=== PATIENT | male | born 1945 | race Caucasian/White ===

== ENCOUNTER 2018-10-26 15:27 | Inpatient (IN) | payer MEDICARE, OTHER ==
--- NOTE | 2018-10-26 16:10 | XR ---
EXAMINATION TYPE: XR Hip LT and AP Pelvis DATE OF EXAM: 10/26/2018 COMPARISON: NONE HISTORY: Recent fall injury with pain. TECHNIQUE: A single AP view of the pelvis is obtained. Two views of the left hip are obtained. FINDINGS: There is age-indeterminate subcapital fracture of left proximal femur presumed acute with some impaction and superior lateral displacement of distal fracture fragment. No hip joint dislocati on is seen. Imaging of the pelvis shows no additional fracture. Moderate narrowing right hip joint is slightly mo re prominent than left hip joint. Scattered pelvic phleboliths are present. IMPRESSION: There is acute subcapital displaced fracture left proximal femur. (Initial encounter closed type post traumatic fracture)
[2018-10-26] MEDS ORDERED: SODIUM CHLORIDE 0.9% 1,000 ML IV STA (16:22)
[2018-10-26] MEDS ORDERED: MORPHINE SULFATE 4 MG/ML SYRINGE IV STA (16:22)
[2018-10-26 16:53] LABS: Basophils % (A) 0 %; Eosinophils # (A) 0.2 k/uL (0-0.7); Eosinophils % (A) 2 %; HCT 39.5 % (39.0-53.0); HGB 12.4 gm/dL (13.0-17.5); Lymphocytes # (A) 1.5 k/uL (1.0-4.8); Lymphocytes % (A) 20 %; MCH 29.6 pg (25.0-35.0); MCHC 31.4 g/dL (31.0-37.0); MCV 94.4 fL (80.0-100.0); Mean Platelet Volume 6.6; Monocytes # (A) 0.5 k/uL (0-1.0); Monocytes % (A) 6 %; Neutrophils # (A) 5.5 k/uL (1.3-7.7); Neutrophils % (A) 70 %; Platelet Count 520 k/uL (150-450); RBC 4.19 m/uL (4.30-5.90); RDW 14.5 % (11.5-15.5); WBC 7.9 k/uL (3.8-10.6)
[2018-10-26 17:00] LABS: INR 0.9 (<1.2); Partial Thromboplastin Time 25.7 sec (22.0-30.0); Prothrombin Time 9.4 sec (9.0-12.0)
--- NOTE | 2018-10-26 17:01 | XR ---
EXAMINATION TYPE: XR chest 2V DATE OF EXAM: 10/26/2018 COMPARISON: NONE HISTORY: Hip pain. Weakness TECHNIQUE: Frontal and lateral views of the chest are obtained. FINDINGS: Heart is normal. Lungs are clear. There is no heart failure. Costophrenic angles are clear . The bony thorax is intact. There is spurring in the thoracic spine. IMPRESSION: No cardiopulmonary disease. Normal heart.
[2018-10-26 17:06] LABS: ALT 50 U/L (21-72); AST 29 U/L (17-59); Albumin 4.1 g/dL (3.5-5.0); Alkaline Phosphatase 124 U/L (38-126); Anion Gap 9 mmol/L; Blood Urea Nitrogen 15 mg/dL (9-20); Calcium 9.3 mg/dL (8.4-10.2); Carbon Dioxide 27 mmol/L (22-30); Chloride 105 mmol/L (98-107); Glucose 102 mg/dL (74-99); Magnesium 2.1 mg/dL (1.6-2.3); Phosphorus 3.3 mg/dL (2.5-4.5); Potassium 4.2 mmol/L (3.5-5.1); Sodium 141 mmol/L (137-145); Total Bilirubin 0.5 mg/dL (0.2-1.3)
--- NOTE | 2018-10-26 17:09 | ED ---
Lower Extremity Injury HPI - General Chief Complaint: Extremity Injury, Lower Stated Complaint: left hip pain Time Seen by Provider: 10/26/18 15:35 Source: RN/MD, EMS, RN notes reviewed, old records reviewed Mode of arrival: EMS Limitations: altered mental status - History of Present Illness Initial Comments: This is a 73-year-old male the ER for evaluation. Patient has multiple recent falls. Patient has had prior evaluation of falls, he is unsure findings with him. Patient poor historian secondary to age. Patient does have what they believe is deformity of left lower extremity. Presenting for that today with pain. This is been ongoing for a few days, no one is sure when this is actual fall did happen. MD Complaint: hip injury (() -: unknown Injury: Hip: Left Type of Injury: blunt Place: home Severity: severe Severity scale (1-10): 8 Improves With: nothing Worsens With: other (Patient cannot weight-bear, does not walk) Context: fall, direct blow Associated Symptoms: unable to bear weight - Related Data Home Medications Medication Instructions Recorded Confirmed Acetaminophen Tab [Tylenol Tab] 325 - 650 mg PO Q6H PRN 10/26/18 10/26/18 Aspirin EC [Ecotrin Low Dose] 81 mg PO DAILY 10/26/18 10/26/18 Atorvastatin [Lipitor] 80 mg PO HS 10/26/18 10/26/18 Cyclobenzaprine [Flexeril] 5 mg PO BID PRN 10/26/18 10/26/18 Shaklee Jazmín Alina 1 tab PO AC-BRKFST 10/26/18 10/26/18 Ticagrelor [Brilinta] 90 mg PO BID 10/26/18 10/26/18 amLODIPine [Norvasc] 5 mg PO DAILY 10/26/18 10/26/18 buPROPion [Wellbutrin] 100 mg PO DAILY 10/26/18 10/26/18 Allergies Allergy/AdvReac Type Severity Reaction Status Date / Time No Known Allergies Allergy Verified 10/26/18 17:37 Review of Systems ROS Statement: Those systems with pertinent positive or pertinent negative responses have been documented in the HPI. ROS Other: All systems not noted in ROS Statement are negative. 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 Absent: scleral icterus, conjunctival injection, periorbital swelling ENT exam: Present: normal exam, mucous membranes moist Neck exam: Present: normal inspection. Absent: tenderness, meningismus, lymphadenopathy Respiratory exam: Present: normal lung sounds bilaterally. Absent: respiratory distress, wheezes, rales, rhonchi, stridor Cardiovascular Exam: Present: regular rate, normal rhythm, normal heart sounds. Absent: systolic murmur, diastolic murmur, rubs, gallop, clicks GI/Abdominal exam: Present: soft, normal bowel sounds. Absent: distended, tenderness, guarding, rebound, rigid Extremities exam: Present: normal inspection, full ROM, normal capillary refill, other (Significant left lower extremity shortening, tenderness and range of motion). Absent: tenderness, pedal edema, joint swelling, calf tenderness Back exam: Present: normal inspection Neurological exam: Present: alert, oriented X3, CN II-XII intact Psychiatric exam: Present: normal affect, normal mood Skin exam: Present: warm, dry, intact, normal color. Absent: rash Course Vital Signs 10/26/18 10/26/18 15:36 17:19 Temperature 97.8 F Pulse Rate 70 89 Respiratory 16 16 Rate Blood Pressure 123/61 136/63 O2 Sat by Pulse 98 100 Oximetry - Reevaluation(s) Reevaluation #1: 10/26/18 18:04 Clinical record reviewed Reevaluation #2: 10/26/18 18:04 Patient is current pain control Medical Decision Making - Medical Decision Making 73 male the ER for evaluation. Patient has fall with history of falls. Patient is multiple recent falls unsure when the issue happened patient does appear to have significant left hip fracture with displacement. - Lab Data Result diagrams: 10/26/18 16:38 10/26/18 16:38 Lab Results 10/26/18 10/26/18 10/26/18 Range/Units 16:38 16:38 16:38 WBC 7.9 (3.8-10.6) k/uL RBC 4.19 L (4.30-5.90) m/uL Hgb 12.4 L (13.0-17.5) gm/dL Hct 39.5 (39.0-53.0) % MCV 94.4 (80.0-100.0) fL MCH 29.6 (25.0-35.0) pg MCHC 31.4 (31.0-37.0) g/dL RDW 14.5 (11.5-15.5) % Plt Count 520 H (150-450) k/uL Neutrophils % 70 % Lymphocytes % 20 % Monocytes % 6 % Eosinophils % 2 % Basophils % 0 % Neutrophils # 5.5 (1.3-7.7) k/uL Lymphocytes # 1.5 (1.0-4.8) k/uL Monocytes # 0.5 (0-1.0) k/uL Eosinophils # 0.2 (0-0.7) k/uL Basophils # 0.0 (0-0.2) k/uL PT 9.4 (9.0-12.0) sec INR 0.9 (<1.2) APTT 25.7 (22.0-30.0) sec Sodium 141 (137-145) mmol/L Potassium 4.2 (3.5-5.1) mmol/L Chloride 105 (98-107) mmol/L Carbon Dioxide 27 (22-30) mmol/L Anion Gap 9 mmol/L BUN 15 (9-20) mg/dL Creatinine 0.61 L (0.66-1.25) mg/dL Est GFR (CKD-EPI)AfAm >90 (>60 ml/min/1.73 sqM) Est GFR (CKD-EPI)NonAf >90 (>60 ml/min/1.73 sqM) Glucose 102 H (74-99) mg/dL Calcium 9.3 (8.4-10.2) mg/dL Phosphorus 3.3 (2.5-4.5) mg/dL Magnesium 2.1 (1.6-2.3) mg/dL Total Bilirubin 0.5 (0.2-1.3) mg/dL AST 29 (17-59) U/L ALT 50 (21-72) U/L Alkaline Phosphatase 124 (38-126) U/L Troponin I (0.000-0.034) ng/mL Total Protein 7.0 (6.3-8.2) g/dL Albumin 4.1 (3.5-5.0) g/dL 10/26/18 Range/Units 16:38 WBC (3.8-10.6) k/uL RBC (4.30-5.90) m/uL Hgb (13.0-17.5) gm/dL Hct (39.0-53.0) % MCV (80.0-100.0) fL MCH (25.0-35.0) pg MCHC (31.0-37.0) g/dL RDW (11.5-15.5) % Plt Count (150-450) k/uL Neutrophils % % Lymphocytes % % Monocytes % % Eosinophils % % Basophils % % Neutrophils # (1.3-7.7) k/uL Lymphocytes # (1.0-4.8) k/uL Monocytes # (0-1.0) k/uL Eosinophils # (0-0.7) k/uL Basophils # (0-0.2) k/uL PT (9.0-12.0) sec INR (<1.2) APTT (22.0-30.0) sec Sodium (137-145) mmol/L Potassium (3.5-5.1) mmol/L Chloride (98-107) mmol/L Carbon Dioxide (22-30) mmol/L Anion Gap mmol/L BUN (9-20) mg/dL Creatinine (0.66-1.25) mg/dL Est GFR (CKD-EPI)AfAm (>60 ml/min/1.73 sqM) Est GFR (CKD-EPI)NonAf (>60 ml/min/1.73 sqM) Glucose (74-99) mg/dL Calcium (8.4-10.2) mg/dL Phosphorus (2.5-4.5) mg/dL Magnesium (1.6-2.3) mg/dL Total Bilirubin (0.2-1.3) mg/dL AST (17-59) U/L ALT (21-72) U/L Alkaline Phosphatase (38-126) U/L Troponin I <0.012 (0.000-0.034) ng/mL Total Protein (6.3-8.2) g/dL Albumin (3.5-5.0) g/dL - EKG Data -: EKG Interpreted by Me (EKG shows sinus rhythm at 79, AL 134, QRS 82, QTc 449) - Radiology Data Radiology results: report reviewed (Chest x-rays negative for acute disease left hip is positive for left hip fracture), image reviewed Disposition Clinical Impression: Fracture of hip, Closed left hip fracture, Fall, Weakness Disposition: ADMITTED IP TO THIS HOSP Condition: Fair Is patient prescribed a controlled substance at d/c from ED?: No Referrals: Felix Bucio MD [Primary Care Provider] - 1-2 days
[2018-10-26] MEDS ORDERED: SODIUM CHLORIDE 0.9% 1,000 ML IV ONE (18:01)
[2018-10-26] MEDS ORDERED: MORPHINE SULFATE 4 MG/ML SYRINGE IVP STA ×2 (18:36→20:06)
[2018-10-26 19:06] LABS: Appearance,Urine Cloudy (Clear); Bilirubin,Urine Negative (Negative); Blood,Urine Small (Negative); Color,Urine Light Yellow; Glucose,Urine (UA) Negative (Negative); Ketones,Urine Negative (Negative); Leukocyte Esterase,Urine Small (Negative); Nitrite,Urine Negative (Negative); Protein,Urine Negative (Negative); RBC,Urine 25 /hpf (0-5); Specific Gravity,Urine 1.013 (1.001-1.035); Urobilinogen,Urine <2.0 mg/dL (<2.0); WBC,Urine 17 /hpf (0-5)
[2018-10-26] MEDS ORDERED: LORazepam 1 MG TAB PO PRN (22:47)
[2018-10-27] MEDS: MORPHINE SULFATE 4 MG/ML SYRINGE IVP PRN (01:56)
[2018-10-27] MEDS: CYCLOBENZAPRINE 5 MG TAB PO PRN (04:50)
[2018-10-27] MEDS: ALPRAZolam 0.25 MG TAB PO PRN (04:50)
[2018-10-27] MEDS: PANTOPRAZOLE 40 MG TABLET PO SCH (08:01)
[2018-10-27] MEDS: amLODIPine 5 MG TAB PO SCH (08:01)
--- NOTE | 2018-10-27 08:01 | HP ---
HISTORY AND PHYSICAL DATE OF SERVICE: 10/26/2018 CHIEF COMPLAINTS: Fall and left hip pain. HISTORY OF PRESENT ILLNESS: This 73-year-old gentleman with a past medical history of multiple medical issues including CVA, TIA, left-sided deficits, some previous stroke, being followed by Dr. Bucio, [facility], in the outpatient setting was complaining of recurrent falls. The patient apparently lives with a friend and the patient is complaining of left hip pain and the patient is unable to lie down because of some severe discomfort on lying down according to him. Patient came to [facility] and has had a hip pelvis x-ray showed acute subcapital displaced fracture of the left proximal femur and the patient admitted for further evaluation and treatment. There is no history of any fever, rigors or chills. No history of headache, loss of consciousness or seizures. A detailed history CT cannot be taken. The patient is a poor historian. Most of the history taken from my discussion with staff and review of the chart. PAST MEDICAL HISTORY: History of CVA, TIA, left-sided deficits, stroke, history of nicotine dependence. MEDICATIONS: Prior to admission include: 1. Wellbutrin 100 mg p.o. daily. 2. Norvasc 5 mg daily. 3. Brilinta 90 mg p.o. b.i.d. 4. Shaklee. 5. Flexeril 5 mg b.i.d. p.r.n. 6. Lipitor 80 mg q.h.s. 7. Ecotrin 81 mg. 8. Tylenol 325 mg q.6h p.r.n. ALLERGIES: None. Family history, social history and review of systems could not be taken at length because of the patient's change in mental status. PHYSICAL EXAM: GENERAL: Patient is alert, oriented x2. VITAL SIGNS: Pulse 92, blood pressure 150/70, respiration 18, temperature 97.8, pulse ox 98% on room air. HEENT: Conjunctivae normal. NECK: No jugular venous distention. CARDIOVASCULAR: S1, S2 muffled. RESPIRATION: Breath sounds diminished in the bases. A few scattered rhonchi. No crackles. ABDOMEN: Soft, nontender. No mass palpable. LEGS: Significant pain on movement of both legs present. Otherwise as mentioned earlier. Patient is not cooperate with full exam. The patient is half sitting in the bed at this time. The patient has received morphine. NERVOUS SYSTEM: Could not be examined completely because of that reason. JOINTS: As mentioned earlier. SKIN: No ulcer, rash, or bleeding. LYMPHATICS: No lymph nodes palpable in the neck, axillae or groin. SKIN: No ulcer, rash or bleeding. LABS: WBC 7.1, hemoglobin 12.4, otherwise UA noted, possibly UTI and chest x-ray no acute cardiopulmonary disease and the EKG showed no acute changes. ASSESSMENT: 1. Fall and acute left hip fracture. 2. History of multiple falls. 3. Rule out degenerative joint disease of the back. 4. History of left-sided stroke from cerebrovascular accident/transient ischemic attack. 5. Rule out coronary artery disease. 6. History of nicotine dependence. 7. FULL CODE. RECOMMENDATIONS AND DISCUSSION: This 73-year-old gentleman who presented with multiple medical issues, at this time, I recommend to continue current medications, continue symptomatic treatment. I will resume the home medications and DVT prophylaxis. Incentive spirometry. Otherwise, I would also recommend Cardiology consultation. Otherwise, prognosis guarded because of multiple complex medical issues. We will also obtain full medical records from the primary physician's office and further recommendations to follow. The patient is on Brilinta but no documentation of any significant coronary artery disease in the chart. The patient appears to be medically stable and I would clear the patient medically. Follow up with Cardiology and further recommendations to follow. See orders for details. MMODL / IJN: [id number] /
[2018-10-27] MEDS ORDERED: ENOXAPARIN 40 MG/0.4 ML SYRINGE SQ SCH (09:00)
--- NOTE | 2018-10-27 10:50 | P.CNOR ---
History of Present Illness - [facility] Consult date: 10/27/18 Requesting physician: Fausto Petty Consult reason: fracture History of present illness: Patient is a 73-year-old male seen at bedside this morning in consultation for left hip fracture. He was admitted to the emergency department last evening for left hip pain. His history is not clear however he states that he had a fall 3 weeks ago which resulted in his left hip pain. He then states he had another fall about 1 week ago. He states he has a history of a stroke where it affected his left side. He states he suffered a stroke approximately 3 months ago and was treated at [facility] and has been in rehab previously. He currently lives alone but has people help him. He has pain at the left hip as expected. Other medical problems are not known at this point. He denies any other new complaints other than the left hip pain with movement. He states he's had weakness and loss of feeling throughout his left lower extremity for the past 3 months. Review of Systems All systems: negative Constitutional: Denies chills, Denies fever Eyes: denies blurred vision, denies pain Ears, nose, mouth and throat: Denies headache, Denies sore throat Cardiovascular: Denies chest pain, Denies shortness of breath Respiratory: Denies cough Gastrointestinal: Denies abdominal pain, Denies diarrhea, Denies nausea, Denies vomiting Musculoskeletal: Denies myalgias Integumentary: Denies pruritus, Denies rash Neurological: Denies numbness, Denies weakness Psychiatric: Denies anxiety, Denies depression Endocrine: Denies fatigue, Denies weight change Past Medical History Past Medical History: CVA/TIA Additional Past Medical History / Comment(s): left side deficits from stroke History of Any Multi-Drug Resistant Organisms: None Reported Past Surgical History: No Surgical Hx Reported Past Anesthesia/Blood Transfusion Reactions: No Reported Reaction Past Psychological History: No Psychological Hx Reported Smoking Status: Current every day smoker Past Alcohol Use History: Occasional Past Drug Use History: None Reported - Past Family History Mother History Unknown: Yes Medications and Allergies Home Medications Medication Instructions Recorded Confirmed Type Acetaminophen Tab [Tylenol Tab] 325 - 650 mg PO Q6H PRN 10/26/18 10/26/18 History Aspirin EC [Ecotrin Low Dose] 81 mg PO DAILY 10/26/18 10/26/18 History Atorvastatin [Lipitor] 80 mg PO HS 10/26/18 10/26/18 History Cyclobenzaprine [Flexeril] 5 mg PO BID PRN 10/26/18 10/26/18 History Onel [place] Alina 1 tab PO AC-BRKFST 10/26/18 10/26/18 History Ticagrelor [Brilinta] 90 mg PO BID 10/26/18 10/26/18 History amLODIPine [Norvasc] 5 mg PO DAILY 10/26/18 10/26/18 History buPROPion [Wellbutrin] 100 mg PO DAILY 10/26/18 10/26/18 History Allergies Allergy/AdvReac Type Severity Reaction Status Date / Time No Known Allergies Allergy Verified 10/26/18 17:37 Physical Examination inspection of the left lower extremity shows a shortened externally rotated leg. There are no wounds or erythema. He does not have active range of motion about the left lower extremity. He is able to sense pressure throughout the left lower extremity. The leg is adequately perfused. Calf is soft and nonte nder. There is 2+ dorsalis pedis pulse and less than 2 second capillary refill. Range of motion of the hip is not tested due to the fracture. Results x-rays of the pelvis left hip show a shortened displaced subcapital femoral neck fracture on the left. - Labs Labs: Abnormal Lab Results - Last 24 Hours (Table) 10/26/18 10/26/18 10/26/18 Range/Units 16:38 16:38 18:56 RBC 4.19 L (4.30-5.90) m/uL Hgb 12.4 L (13.0-17.5) gm/dL Plt Count 520 H (150-450) k/uL Creatinine 0.61 L (0.66-1.25) mg/dL Glucose 102 H (74-99) mg/dL Urine Blood Small H (Negative) Ur Leukocyte Esterase Small H (Negative) Urine RBC 25 H (0-5) /hpf Urine WBC 17 H (0-5) /hpf Microbiology - Last 24 Hours (Table) 10/26/18 18:56 Urine Culture - Preliminary Urine,Voided H & H 10/26/18 Range/Units 16:38 Hgb 12.4 L (13.0-17.5) gm/dL Hct 39.5 (39.0-53.0) % Coagulation 10/26/18 Range/Units 16:38 INR 0.9 (<1.2) Result Diagrams: 10/26/18 16:38 10/26/18 16:38 - Diagnostic results Hip x-ray: report reviewed, image reviewed Assessment and Plan (1) Closed left hip fracture Narrative/Plan: Plan will be to proceed with surgical intervention including a left hip hemiarthroplasty if cleared by internal medicine and primary team. He will be p laced nothing by mouth after midnight. Procedure and consent have been ordered. He'll need placement postoperatively. I Explained the procedure, possible risks and complications. He desires to proceed if possible. Continue pain management, DVT prophylaxis and medical management in the meantime. Current Visit: Yes Status: Acute Priority: Medium Code(s): S72.002A - FRACTURE OF UNSP PART OF NECK OF LEFT FEMUR, INIT SNOMED Code(s): 877145492 (2) Fracture of hip Current Visit: Yes Status: Acute Priority: Medium Code(s): S72.009A - FRACTURE OF UNSP PART OF NECK OF UNSP FEMUR, INIT SNOMED Code(s): 777799148 (3) Weakness Current Visit: Yes Status: Acute Priority: Medium Code(s): R53.1 - WEAKNESS SNOMED Code(s): 52851803
--- NOTE | 2018-10-27 11:49 | P.CRDCN ---
History of Present Illness Consult date: 10/27/18 Chief complaint: Preop cardiac assessment History of present illness: This is a 73-year-old gentleman who is somewhat poor historian with a past medical history significant for history of stroke with residual left sided weakness was admitted to the hospital after he fell at home and fractured his left hip. The patient has been weak lately and he has been falling as well. Apparently he was at home when he fell and started experiencing left hip pain and he presented to the emergency room here where he underwent a computed tomography scan which showed fracture of the left proximal femur and the patient was admitted for possible surgery tomorrow. The patient denies any chest pain, shortness of breath, dizziness, heart racing, or syncope. Somewhat he is a poor historian. For some reason he is receiving Brilinta at 90 mg by mouth twice a day but he stated that he never had any coronary stenting nor coronary revascularization in the past. He stated that was prescribed to him by his urologist. The only indication for this medication is coronary artery disease and coronary stenting. Reviewing the previous medical records in the hospital did not indicate that the patient underwent a heart catheterization or coronary stenting in the past unless the patient did undergo that out of the town. The EKG showed sinus rhythm. The chest x-ray did not show any acute abnormalities the blood work was reviewed and came in to be unremarkable. Past Medical History Past Medical History: CVA/TIA Additional Past Medical History / Comment(s): left side deficits from stroke History of Any Multi-Drug Resistant Organisms: None Reported Past Surgical History: No Surgical Hx Reported Past Anesthesia/Blood Transfusion Reactions: No Reported Reaction Past Psychological History: No Psychological Hx Reported Smoking Status: Current every day smoker Past Alcohol Use History: Occasional Past Drug Use History: None Reported - Past Family History Mother History Unknown: Yes Medications and Allergies Home Medications Medication Instructions Recorded Confirmed Type Acetaminophen Tab [Tylenol Tab] 325 - 650 mg PO Q6H PRN 10/26/18 10/26/18 History Aspirin EC [Ecotrin Low Dose] 81 mg PO DAILY 10/26/18 10/26/18 History Atorvastatin [Lipitor] 80 mg PO HS 10/26/18 10/26/18 History Cyclobenzaprine [Flexeril] 5 mg PO BID PRN 10/26/18 10/26/18 History Shaklee Jazmín Alina 1 tab PO AC-BRKFST 10/26/18 10/26/18 History Ticagrelor [Brilinta] 90 mg PO BID 10/26/18 10/26/18 History amLODIPine [Norvasc] 5 mg PO DAILY 10/26/18 10/26/18 History buPROPion [Wellbutrin] 100 mg PO DAILY 10/26/18 10/26/18 History Allergies Allergy/AdvReac Type Severity Reaction Status Date / Time No Known Allergies Allergy Verified 10/26/18 17:37 Physical Exam Vitals: Vital Signs Temp Pulse Pulse Resp BP BP Pulse Ox 10/27/18 07:00 98.1 F 82 12 136/72 98 10/27/18 02:10 97.4 F L 89 14 157/81 98 10/26/18 22:19 97.9 F 89 12 132/78 96 10/26/18 21:09 70 16 126/72 100 10/26/18 18:55 92 18 155/73 98 10/26/18 17:19 89 16 136/63 100 10/26/18 15:36 97.8 F 70 16 123/61 98 Intake and Output 10/26/18 10/27/18 10/27/18 22:59 06:59 14:59 Intake Total 1799 Output Total 800 Balance 1799 -800 Intake: Intake, IV Titration 1799 Amount Sodium Chloride 0.9% 1, 800 000 ml @ 100 mls/hr IV . Q10H ONE Rx#:[id number] Sodium Chloride 0.9% 1, 999 000 ml @ 999 mls/hr IV . Q1H1M STA Rx#:[id number] Output: Urine 800 Other: # Voids 0 1 4 Weight 70.307 kg - Constitutional General appearance: no acute distress - Respiratory Respiratory: bilateral: CTA - Cardiovascular Rhythm: regular Heart sounds: normal: S1, S2 Results 10/26/18 16:38 10/26/18 16:38 Cardiac Enzymes 10/26/18 10/26/18 Range/Units 16:38 16:38 AST 29 (17-59) U/L Troponin I <0.012 (0.000-0.034) ng/mL Coagulation 10/26/18 Range/Units 16:38 PT 9.4 (9.0-12.0) sec APTT 25.7 (22.0-30.0) sec CBC 10/26/18 Range/Units 16:38 WBC 7.9 (3.8-10.6) k/uL RBC 4.19 L (4.30-5.90) m/uL Hgb 12.4 L (13.0-17.5) gm/dL Hct 39.5 (39.0-53.0) % Plt Count 520 H (150-450) k/uL Comprehensive Metabolic Panel 10/26/18 Range/Units 16:38 Sodium 141 (137-145) mmol/L Potassium 4.2 (3.5-5.1) mmol/L Chloride 105 (98-107) mmol/L Carbon Dioxide 27 (22-30) mmol/L BUN 15 (9-20) mg/dL Creatinine 0.61 L (0.66-1.25) mg/dL Glucose 102 H (74-99) mg/dL Calcium 9.3 (8.4-10.2) mg/dL AST 29 (17-59) U/L ALT 50 (21-72) U/L Alkaline Phosphatase 124 (38-126) U/L Total Protein 7.0 (6.3-8.2) g/dL Albumin 4.1 (3.5-5.0) g/dL Current Medications Generic Name Dose Route Start Last Admin Trade Name Freq PRN Reason Stop Dose Admin Hydrocodone Bitart/Acetaminophen 1 each 10/27/18 10:43 [place] 5-325 PO Q4HR PRN Pain Alprazolam 0.25 mg 10/26/18 22:47 10/27/18 04:50 Xanax PO 0.25 mg TID PRN Administration Anxiety Amlodipine Besylate 5 mg 10/27/18 09:00 10/27/18 08:01 Norvasc PO 5 mg DAILY SATURNINO Administration Atorvastatin Calcium 80 mg 10/27/18 21:00 Lipitor PO HS SATURNINO Bupropion HCl 100 mg 10/27/18 09:00 Wellbutrin PO DAILY SATURNINO Cefazolin Sodium 2 gm 10/27/18 11:00 Kefzol IVP Q8HR SATURNINO Cyclobenzaprine HCl 5 mg 10/26/18 22:43 10/27/18 04:50 Flexeril PO 5 mg BID PRN Administration Muscle Spasm Enoxaparin Sodium 40 mg 10/27/18 09:00 Lovenox SQ DAILY SATURNINO Lorazepam 0.5 mg 10/26/18 22:47 Ativan PO Q8HR PRN Anxiety Morphine Sulfate 4 mg 10/26/18 18:36 10/27/18 01:56 Morphine Sulfate (Inj) IVP 4 mg Q4HR PRN Administration Pain Pantoprazole Sodium 40 mg 10/27/18 07:30 10/27/18 08:01 Protonix PO 40 mg AC-BRKFST SATURNINO Administration Intake and Output 10/26/18 10/27/18 10/27/18 22:59 06:59 14:59 Intake Total 1799 Output Total 800 Balance 1799 -800 Intake: Intake, IV Titration 1799 Amount Sodium Chloride 0.9% 1, 800 000 ml @ 100 mls/hr IV . Q10H ONE Rx#:[id number] Sodium Chloride 0.9% 1, 999 000 ml @ 999 mls/hr IV . Q1H1M STA Rx#:[id number] Output: Urine 800 Other: # Voids 0 1 4 Weight 70.307 kg 10/26/18 16:38 10/26/18 16:38 Assessment and Plan Assessment: Assessment #1 status post fall #2 left hip fracture #3 history of stroke Plan #1 clinically the patient can proceed with his surgery #2 I am going to obtain an echocardiogram with Doppler #3 follow-up with the patient Thank you for allowing us participate in his care
[2018-10-27] MEDS: buPROPion 100 MG TAB PO SCH (12:32)
[2018-10-27] MEDS: HYDROcodone/APAP 5-325MG 1 EACH TAB PO PRN ×2 (12:40→22:31)
[2018-10-27] MEDS: ceFAZolin IN SWFI 2 GM/20 ML SYRINGE IVP SCH ×3 (12:41→23:58)
--- NOTE | 2018-10-27 18:01 | CT ---
EXAMINATION TYPE: CT brain wo con DATE OF EXAM: 10/27/2018 COMPARISON: None HISTORY: 73-year-old male old stroke, f/u CVA TECHNIQUE: Examination was done in axial plane without intravenous contrast. Coronal and sagittal r econstructions performed. CT DLP: 1202.4 mGycm Automated exposure control for dose reduction was used. FINDINGS: There is no evidence of acute intracranial hemorrhage, acute ischemic changes, mass, mass-effect, or extra-axial fluid collection. There is no effacement of cerebral sulci or basal subarachnoid cister ns. There is no hydrocephalus. There is no midline shift. Silveira-white matter distinction is preserv ed. Extensive encephalomalacia in the right cerebral hemisphere corresponding to the MCA territory. Secon kai mild ex vacuo enlargement of the right lateral ventricle. Old bilateral basal ganglionic lacunar infarcts. Paranasal sinuses and mastoid air cells are well pneumatized. Orbits and globes appear intact. Rightw yenifer nasal septal deviation. IMPRESSION: Large area of encephalomalacia corresponding to the right MCA territory compatible with old infarct. No acute intracranial abnormality seen.
--- NOTE | 2018-10-27 19:40 | PN ---
PROGRESS NOTE DATE OF SERVICE: 10/27/2018 DATE OF SERVICE: This 73-year-old gentleman who was admitted with acute left hip fracture is being closely monitored by Cardiology as well as orthopedic surgery. Patient had a previous history of stroke. Apparently patient is on Brilinta also of unknown indications. The patient also had UTI present on admission. The patient also complains of back pain also. PAST MEDICAL HISTORY: Reviewed. REVIEW OF SYSTEMS: CARDIOVASCULAR: No angina or palpitations. RESPIRATORY: As mentioned earlier. GI no nausea or vomiting. no dysuria. CURRENT MEDICATIONS: Reviewed and include: 1. [place] 5 mg p.o. q4h p.r.n. 2. Xanax 0.2 t.i.d. 3. Norvasc. 4. Lipitor. 5. Wellbutrin. 6. Kefzol. 7. Flexeril. 8. Lovenox. 9. Ativan. 10.Morphine. 11.Protonix. PHYSICAL EXAM: Patient is alert, oriented x2. Sensorium has improved significantly compared to last night. Pulse 94, blood pressure 116/60. Respirations 12. Temperature is 98 degrees, pulse ox 97% on room air. HEENT: Conjunctivae normal. Oral mucosa moist. Neck is no jugular venous distention. No carotid bruit. No lymph nodes palpable. CARDIOVASCULAR: S1, S2 muffled. RESPIRATORY: Breath sounds diminished in the bases. Bilateral scattered rhonchi and crackles. ABDOMEN: Soft, nontender. Legs status post fracture. NERVOUS SYSTEM: Diffuse weakness on the left side. LABS: WBC 7.2, hemoglobin 12.4. ASSESSMENT: 1. Acute left hip fracture. 2. History of multiple falls and gait dysfunction. 3. 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 4. Possible urinary tract infection present on admission. 5. 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 6. On Brilinta for unknown undetermined reasons. 7. History of nicotine dependence. 8. FULL CODE. RECOMMENDATIONS AND DISCUSSION: This 73-year-old gentleman who presented with multiple complex medical issues, we will monitor the patient closely, continue the current medications, management and symptomatic treatment. I recommend continue with DVT prophylaxis. Obtain cultures. I would also recommend x-rays of the back and also CT scan of the brain also. Otherwise, we will follow the patient closely and discussed with Dr. Skaf. There is no documented or obvious evidence of coronary artery disease. At this time, I recommend hold Brilinta and the patient will be cleared for surgery once the bleeding risks after stopping the Brilinta. Please note, the patient is currently medically stable. Further recommendations to follow. MMODL / IJN: [id number] / MTDD
--- NOTE | 2018-10-27 20:11 | XR ---
EXAMINATION TYPE: XR lumbar spine 2 or 3V DATE OF EXAM: 10/27/2018 COMPARISON: NONE HISTORY: 73-year-old male with back pain TECHNIQUE: 3 views FINDINGS: Osteopenia. Dextroconvex curvature of the lumbar spine. 5 lumbar type vertebral bodies. Very limited crosstable lateral view due to external artifact and overlying bowel content. Hypertrophic facet arth ropathy throughout. Mild degenerative disc disease throughout. Grade 1 anterolisthesis at L2-L3. Bulk y anterior endplate spondylosis lumbar junction. Subtle inferior endplate cortical step off involving L1 may be projectional. Overall vertebral body heights are maintained. IMPRESSION: 1. The lateral view is limited due to crosstable technique. Facet arthropathy throughout with trace g rade 1 anterolisthesis at L2-L3. 2. Questionable cortical step-off involving the L1 inferior endplate. A subtle endplate fracture is d ifficult to exclude if there is localizing pain at this level. Overall vertebral body heights are arielle ntained at this time.
[2018-10-27] MEDS: ATORVASTATIN 80 MG TAB PO SCH (21:03)
[2018-10-28] MEDS: ALPRAZolam 0.25 MG TAB PO PRN (01:59)
[2018-10-28] MEDS: CYCLOBENZAPRINE 5 MG TAB PO PRN (01:59)
[2018-10-28] MEDS: MORPHINE SULFATE 4 MG/ML SYRINGE IVP PRN (04:57)
[2018-10-28] MEDS: PANTOPRAZOLE 40 MG TABLET PO SCH (08:00)
--- NOTE | 2018-10-28 08:10 | ECHOF ---
Referral Reason:pre op MEASUREMENTS -------- HEIGHT: 177.8 cm WEIGHT: 70.3 kg BP: IVSd: 1.2 cm (0.6 - 1.1) LVIDd: 3.0 cm (3.9 - 5.3) LVPWd: 1.3 cm (0.6 - 1.1) IVSs: 1.6 cm LVIDs: 1.2 cm LVPWs: 1.1 cm Ao Diam: 3.1 cm (2.0 - 3.7) AV Cusp: 2.1 cm (1.5 - 2.6) LA Diam: 2.8 cm (2.7 - 3.8) MV EXCURSION: 12.885 mm (> 18.000) MV EF SLOPE: 23 mm/s (70 - 150) EPSS: 0.4 cm MV E Clarence: 0.49 m/s MV DecT: 198 ms MV A Clarence: 0.87 m/s MV E/A Ratio: 0.56 FINDINGS -------- Resting tachycardia (HR>100bpm). This was a technically difficult study with suboptimal views. The left ventricular size is normal. There is mild concentric left ventricular hypertrophy. Overa ll left ventricular systolic function is normal with, an EF between 60 - 65 %. The right ventricle is normal in size. The left atrial size is normal. The right atrial size is normal. Lumason used The aortic valve is trileaflet and appears structurally normal. Mild mitral regurgitation is present. Mild tricuspid regurgitation present. The right ventricular systolic pressure, as measured by Doppl er, is {RVSP}. Pulmonic valve appears structurally normal. The aortic root is dilated measuring 3.1cm. IVC Not well visulized. There is no pericardial effusion. CONCLUSIONS -------- 1. Resting tachycardia (HR>100bpm). 2. This was a technically difficult study with suboptimal views. 3. The left ventricular size is normal. 4. There is mild concentric left ventricular hypertrophy. 5. Overall left ventricular systolic function is normal with, an EF between 60 - 65 %. 6. The right ventricle is normal in size. 7. The left atrial size is normal. 8. The right atrial size is normal. 9. Lumason used 10. The aortic valve is trileaflet and appears structurally normal. 11. Mild mitral regurgitation is present. 12. Mild tricuspid regurgitation present. 13. Pulmonic valve appears structurally normal. 14. The aortic root is dilated measuring 3.1cm. 15. IVC Not well visulized. 16. There is no pericardial effusion. ROOM SERVICE MANAGER: Mckayla Mcginnis RDCS
[2018-10-28] MEDS ORDERED: NEOSTIGMINE 1 MG/ML 10 ML VIAL ONE (08:13)
[2018-10-28] MEDS ORDERED: PHENYLEPHRINE-0.9% NACL SYG 1 MG/10 ML SYRINGE ONE (08:13)
[2018-10-28] MEDS ORDERED: GLYCOPYRROLATE 0.2 MG/ML 2 ML VIAL ONE (08:13)
[2018-10-28] MEDS ORDERED: ROCURONIUM BROMIDE 10 MG/ML 10 ML VIAL IV ONE (08:13)
[2018-10-28] MEDS ORDERED: PROPOFOL 10 MG/ML 20 ML VIAL IV ONE (08:13)
[2018-10-28] MEDS ORDERED: fentaNYL (PF) 50 MCG/ML 2 ML AMP ONE (08:13)
[2018-10-28] MEDS ORDERED: fentaNYL (PF) 50 MCG/ML 2 ML AMP IVP ONE (08:19)
[2018-10-28] MEDS ORDERED: SODIUM CHLORIDE 0.9% 1,000 ML IV ONE (08:23)
[2018-10-28] MEDS ORDERED: ceFAZolin 3,000 MG in SODIUM CHLORIDE 0.9% IRRIGATIO 3,000 ML IRRIGATION ONE (08:47)
[2018-10-28] MEDS ORDERED: LACTATED RINGERS 1,000 ML IV ONE (09:05)
[2018-10-28] MEDS: ceFAZolin IN SWFI 2 GM/20 ML SYRINGE IVP SCH ×2 (09:15→15:43)
[2018-10-28] MEDS ORDERED: MAGNESIUM HYDROXIDE 2,400 MG/10 ML CUP PO PRN (10:10)
[2018-10-28] MEDS ORDERED: NALOXONE 0.4 MG/ML 1 ML VIAL IV PRN (10:10)
[2018-10-28] MEDS ORDERED: HYDROmorphone 0.5 MG/0.5 ML SYRINGE IVP PRN ×2 (10:10)
--- NOTE | 2018-10-28 10:39 | OP ---
OPERATIVE REPORT DATE OF SURGERY: 10/28/2018. PREOPERATIVE DIAGNOSIS: Left hip displaced femoral neck fracture. POSTOP DIAGNOSIS: Left hip displaced femoral neck fracture. PROCEDURE: Left hip hemiarthroplasty. SURGEON: Fausto Petty MD. SOFTWARE QUALITY AUTOMATION ENGINEER: Jax RUBIO. ANESTHESIA: General endotracheal. ESTIMATED BLOOD LOSS: 100 mL. TOURNIQUET: None. DRAINS: None. COMPLICATIONS: None apparent. DISPOSITION: Postanesthesia care unit. INDICATIONS: Luzma is a 73-year-old male who is a very poor historian. He has had a recent history of multiple CVA/TIAs. He has had left-sided deficits from his strokes. He states that he is he had a fall approximately 3 weeks ago which resulted in his left hip pain. He then stated that he had another fall approximately 1 week ago. He also stated that he suffered a stroke approximately 3 months ago and was treated at [facility]. Has been in rehab previously. He states that he currently lives alone, but people help him. X-rays reveal a displaced left femoral neck fracture. Just based on the x-ray and his history, this appears to be more of a chronic situation. Recommendation was for left hip hemiarthroplasty. The risks of the procedure were discussed with him in detail. These risks include, but not limited to risk of infection, nerve damage, bleeding, pain, and a small risk of deep vein thrombosis which could lead to fatal pulmonary embolism. Further risks include possibility for postoperative instability and periprosthetic fracture. All of his questions with regards to the risks were answered to his satisfaction. Appropriate informed consent was obtained. DESCRIPTION OF THE PROCEDURE: The patient identified in the preoperative holding area. Surgical site was marked by both the patient and myself. He was given 2 g of Ancef IV for prophylactic purposes. He was then transported to the operative suite. He was placed supine on the operative table. General anesthetic was administered dosed per the anesthesia without apparent complication. He was then placed into the right lateral decubitus position well-padded on the table. A well-padded axillary roll was placed. His left lower extremity was then prepped and draped in usual sterile fashion. Standard surgical pause undertaken to ensure that appropriate preoperative antibiotics were given and that and that we were operating the correct site. All staff in the room were in agreement and we proceeded. The outlines of the greater trochanter marked surgical pen. A planned 10-12 cm incision centered over the tip of the greater trochanter was then marked surgical pen. The incision was then made with a 10 blade scalpel. Dissection carried down sharply to the tensor fascia. The tensor fascia was incised in line with the incision. A Charnley retractor was then utilized to retract the tensor fascia. This exposed the underlying trochanteric bursa. The bursa was then excised sharply. I then proceeded with Hardinge type anterolateral approach. The raphae between the anterior 3rd and posterior 3-2/3rd of the gluteus medius muscle was identified. This was then incised with the electrocautery. I then took the anterior third of the gluteus medius, gluteus minimus and hip capsule off in a sleeve anteriorly. The fracture certainly had appearances of being more of a chronic fracture. The femoral head was quite fragmented. It had to be removed piecemeal, so to speak. When I had removed the entire femoral head. I then made a femoral head and I then sized for the hemiarthroplasty. The 48 trial was placed on the lollipop. This had a fairly good suction fit within the acetabulum. I then exposed the proximal femur. I then utilized a template guide to make a fresh femoral neck cut. This was done with the reciprocating saw. I then entered the proximal femur utilizing a box stamper. The starting reamer was then placed down the shaft of the femur. Hip lateralize was also utilized. I then reamed the proximal femur up to a size 10. I had good chatter with a size 10 reamer. I then proceeded to broach the proximal femur. The broach was placed in approximately 10-15 degrees of anteversion. I broached up to a size 10 broach. This had an excellent fit. It was very stable. I then proceeded with trial. Due to the chronicity of the fracture, I started with a -6 neck to trial. I then proceeded to trial up to a +3 neck. This had a fairly good fit. There was minimal shuck. The hip was stable throughout a range of motion. The hip was then very carefully dislocated. The wound was thoroughly irrigated with sterile saline solution with antibiotic added via pulse lavage. I then had the quality assurance representative open the real components. I utilized a Biomet size 10 Bimetric collared stem press-fit stem. A +3 neck and a 48 monopolar head. The stem was then impacted into the proximal femur in approximately 10-15 degrees of anteversion. The trunnion was then completely dried and then the monopolar head and neck were then impacted onto the Coppola taper. The hip was then reduced and again taken through full range of motion. It was very stable. Very minimal shuck. The leg lengths were approximately equal. I then proceeded with closure. Again the wound was thoroughly irrigated with sterile saline solution with antibiotic added via pulse lavage. The gluteus medius, minimus and anterior capsule were then repaired back to the greater trochanter utilizing #5 Ethibond transosseous suture. Again the wound was thoroughly irrigated. The tensor fascia was then closed with a running #2 Quill suture. Subcutaneous tissue closed with 2-0 Vicryl interrupted suture. The skin was closed with a running 3-0 Quill suture. Dermabond was then applied to the incision. Sterile compressive dressing was then applied and the patient's left lower extremity was placed into a hip abduction pillow. All sponge and needle counts were deemed correct prior to closure. The patient tolerated the procedure without apparent complication. He was transferred to recovery room in stable condition. MMODL / IJN: [id number] /
--- NOTE | 2018-10-28 10:50 | XR ---
EXAMINATION TYPE: XR Hip Limited LT , ONE VIEW DATE OF EXAM ORDERED: 10/28/2018 HISTORY: Status post hip surgery, assess surgical alignment. COMPARISON: None. FINDINGS: The left hip hemiarthroplasties been performed. Prosthetic elements appear in good positio n in this single frontal projection. Metallic skin sutures are present. IMPRESSION: STATUS POST LEFT HIP HEMIARTHROPLASTY.
--- NOTE | 2018-10-28 11:51 | P.PN ---
Subjective Progress Note Date: 10/28/18 Principal diagnosis: Preoperative cardiac assessment This is a 73-year-old gentleman who is somewhat poor historian with a past medical history significant for history of stroke with residual left sided weakness was admitted to the hospital after he fell at home and fractured his left hip. The patient has been weak lately and he has been falling as well. Apparently he was at home when he fell and started experiencing left hip pain and he presented to the emergency room here where he underwent a computed tomography scan which showed fracture of the left proximal femur and the patient was admitted for possible surgery tomorrow. The patient denies any chest pain, shortness of breath, dizziness, heart racing, or syncope. Somewhat he is a poor historian. For some reason he is receiving Brilinta at 90 mg by mouth twice a day but he stated that he never had any coronary stenting nor coronary revascularization in the past. He stated that was prescribed to him by his urologist. The only indication for this medication is coronary artery disease and coronary stenting. Reviewing the previous medical records in the hospital did not indicate that the patient underwent a heart catheterization or coronary stenting in the past unless the patient did undergo that out of the town. The EKG showed sinus rhythm. The chest x-ray did not show any acute abnormalities the blood work was reviewed and came in to be unremarkable. On follow-up with the patient today, 10/28/2018, the patient underwent left hip hemiarthroplasty earlier today. He is in some pain. Hemodynamically, he is hypertensive and slightly tachycardic. I'm going to add a small dose of metoprolol to the current medical regimen. The echocardiogram revealed normal LV function without any significant valvular abnormalities. Objective - Vital Signs Vital signs: Vital Signs Temp 98 F 10/28/18 11:00 Pulse 104 H 10/28/18 11:44 Resp 10 L 10/28/18 11:00 BP 131/73 10/28/18 11:44 Pulse Ox 99 10/28/18 11:00 Intake & Output 10/27/18 10/28/18 10/28/18 18:59 06:59 18:59 Intake Total 50 1401 Output Total 1999 225 300 Balance -1999 -175 1101 Intake: IV 1401 Intake, IV Titration 50 Amount ceFAZolin 2,000 mg In 50 Sodium Chloride 0.9% 50 ml @ 100 mls/hr IVPB Q8HR [facility], [facility]–1983 Rx#:[id number] Output: Urine 2000 225 200 Estimated Blood Loss 100 Other: # Voids 4 3 - Constitutional General appearance: Present: no acute distress - Respiratory Respiratory: bilateral: CTA - Cardiovascular Rhythm: regular Heart sounds: normal: S1, S2 - Labs CBC & Chem 7: 10/26/18 16:38 10/26/18 16:38 Labs: Microbiology - Last 24 Hours (Table) 10/26/18 18:56 Urine Culture - Preliminary Urine,Voided Gram Neg Bacilli Assessment and Plan Assessment: Assessment #1 status post fall #2 left hip fracture #3 history of stroke Plan #1 clinically the patient can proceed with his surgery #2 add small dose of metoprolol to control the heart rate and blood pressure Thank you for allowing us participate in his care
[2018-10-28] MEDS: amLODIPine 5 MG TAB PO SCH (12:23)
[2018-10-28] MEDS: HYDROcodone/APAP 5-325MG 1 EACH TAB PO PRN ×3 (12:23→22:11)
[2018-10-28] MEDS: buPROPion 100 MG TAB PO SCH (12:24)
[2018-10-28] MEDS: ATORVASTATIN 80 MG TAB PO SCH (20:06)
[2018-10-28] MEDS: HEPARIN SODIUM,PORCINE 5,000 UNIT/ML 1 ML VIAL SQ SCH (20:06)
[2018-10-28] MEDS: SENNOSIDES-DOCUSATE SODIUM 1 EACH TAB PO SCH (20:06)
[2018-10-28] MEDS: METOPROLOL TARTRATE 12.5 MG TAB PO SCH (20:06)
--- NOTE | 2018-10-28 21:33 | PN ---
PROGRESS NOTE DATE OF SERVICE: 10/28/2018 This 73-year-old gentleman admitted with acute left hip fracture with multiple other complex medical issues. Also the patient on Brilinta for unknown reasons. Brilinta was stopped and Cardiology recommended add a small dose of beta blockers. Otherwise, the patient underwent a left hip hemiarthroplasty by Dr. Petty. The patient tolerated the procedure well. No chest pain. No palpitations. No fever. The sensorium is also improved. PAST MEDICAL HISTORY: Reviewed. REVIEW OF SYSTEMS: CARDIOVASCULAR: No angina. RESPIRATORY: As mentioned earlier. GI: As mentioned. : No dysuria. MUSCULOSKELETAL: As mentioned earlier. CURRENT MEDICATIONS: 1. [place] 5 mg q.4h p.r.n. 2. Norvasc 5 mg q.h.s. 3. Lipitor 80 mg q.h.s. 4. Kefzol 2 g IV q.8h. 5. Dilaudid. 6. Ativan. 7. Milk of Magnesia. 8. Multivitamins. 9. Narcan. 10.Protonix. 11.Senokot S. PHYSICAL EXAM: Patient is alert, oriented x2. Pulse 90, blood pressure 120/63, respiration 12, temperature 98 degrees, pulse ox 98% on room air. HEENT: Conjunctivae normal. NECK: No jugular venous distention. CARDIOVASCULAR: S1, S2 muffled. RESPIRATORY: Breath sounds diminished in the bases. Bilateral scattered rhonchi and crackles. ABDOMEN: Soft, nontender. No mass palpable. LEGS: No edema. NERVOUS SYSTEM: Higher functions as mentioned. Moves all four limbs. No focal motor sensory deficits. LYMPHATICS: No lymphadenopathy in the neck, axillae, groin. SKIN: No ulcer, rash, bleeding. JOINTS: No active deforming arthropathy. LABS: WBC 7, hemoglobin 12.4. Other labs are noted. UA noted. ASSESSMENT: 1. Acute left hip fracture status post left hip hemiarthroplasty. 2. Multiple falls and gait dysfunction history recently. 3. 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 4. Change in mental status, metabolic encephalopathy multifactorial. 5. Urinary tract infection present on admission. 6. History of left-sided stroke from CVA and right encephalomalacia. 7. On Brilinta for unknown and undetermined reasons. 8. History of nicotine dependence. 9. FULL CODE. RECOMMENDATION AND DISCUSSION: In this 73-year-old gentleman who presented with multiple complex medical issues, we will monitor the patient closely. Continue the current management and symptomatic treatment. I will continue with current medications. Continue with DVT prophylaxis. Otherwise, continue with antibiotics. The patient does not have history of stent even after extensive search of various records. So Brilinta has been stopped. Dr. Maher has recommended a small dose of metoprolol. We will continue to monitor. Prognosis guarded. See orders for details. I would also recommend PT OT evaluation, possible ECF rehab also once ortho has cleared the patient. Prognosis guarded. See orders for details. MMODL / IJN: [id number] /
[2018-10-29] MEDS: ceFAZolin IN SWFI 2 GM/20 ML SYRINGE IVP SCH ×3 (00:12→16:39)
[2018-10-29] MEDS: ACETAMINOPHEN TAB 325 MG TAB PO PRN (01:52)
[2018-10-29] MEDS: HYDROmorphone 0.5 MG/0.5 ML SYRINGE IVP PRN ×2 (03:44→16:39)
[2018-10-29] MEDS: HYDROcodone/APAP 5-325MG 1 EACH TAB PO PRN ×2 (07:41→14:36)
[2018-10-29] MEDS: HEPARIN SODIUM,PORCINE 5,000 UNIT/ML 1 ML VIAL SQ SCH ×2 (07:46→22:14)
[2018-10-29] MEDS: PANTOPRAZOLE 40 MG TABLET PO SCH (07:46)
[2018-10-29] MEDS: METOPROLOL TARTRATE 12.5 MG TAB PO SCH ×2 (07:47→22:14)
[2018-10-29] MEDS: buPROPion 100 MG TAB PO SCH (07:47)
[2018-10-29] MEDS: amLODIPine 5 MG TAB PO SCH (07:47)
[2018-10-29 10:44] LABS: Basophils % (A) 0 %; Eosinophils # (A) 0.1 k/uL (0-0.7); Eosinophils % (A) 1 %; HCT 30.9 % (39.0-53.0); HGB 10.3 gm/dL (13.0-17.5); Lymphocytes # (A) 1.7 k/uL (1.0-4.8); Lymphocytes % (A) 26 %; MCH 31.2 pg (25.0-35.0); MCHC 33.2 g/dL (31.0-37.0); MCV 93.8 fL (80.0-100.0); Mean Platelet Volume 7.4; Monocytes # (A) 0.5 k/uL (0-1.0); Monocytes % (A) 8 %; Neutrophils # (A) 4.1 k/uL (1.3-7.7); Neutrophils % (A) 63 %; Platelet Count 367 k/uL (150-450); RBC 3.29 m/uL (4.30-5.90); WBC 6.5 k/uL (3.8-10.6)
[2018-10-29] MEDS: MULTIVITAMINS, THERA 1 EACH TAB PO SCH (13:17)
--- NOTE | 2018-10-29 14:57 | P.PN ---
Subjective Progress Note Date: 10/29/18 Principal diagnosis: S/P left hip hemiarthroplasty Patient is seen at bedside this morning. He is postop day #1 from left hip hemiarthroplasty for hip fracture. He has pain at the surgical site as expected but denies any new complaints. He denies new numbness, tingling or calf pain. Review of systems is negative for fever, chills, chest pain, shortness of breath or other Objective - Vital Signs Vital signs: Vital Signs Temp 98.6 F 10/29/18 07:46 Pulse 96 10/29/18 07:46 Resp 16 10/29/18 07:46 BP 100/66 10/29/18 07:46 Pulse Ox 97 10/29/18 07:46 Intake & Output 10/28/18 10/29/18 10/29/18 18:59 06:59 18:59 Intake Total 2401 800 Output Total 300 1425 500 Balance 2101 -625 -500 Intake: IV 1401 Intake, IV Titration 650 800 Amount Sodium Chloride 0.9% 1, 650 800 000 ml @ 0 mls/hr IV .[facility] ONE Rx#:[id number] Oral 350 Output: Urine 200 1425 500 Straight 1250 500 Estimated Blood Loss 100 Other: # Voids 2 - Exam Inspection reveals a benign surgical wound. There is no active bleeding or drainage. Neurovascular status is intact throughout the lower extremity with motor and sensation fully intact. Calf is soft and nontender. 2+ dorsalis ped is pulse and less than 2 second cap refill is present. - Constitutional General appearance: Present: no acute distress - Labs CBC & Chem 7: 10/29/18 06:50 10/26/18 16:38 Labs: Abnormal Lab Results - Last 24 Hours (Table) 10/29/18 Range/Units 06:50 RBC 3.29 L (4.30-5.90) m/uL Hgb 10.3 L (13.0-17.5) gm/dL Hct 30.9 L (39.0-53.0) % Microbiology - Last 24 Hours (Table) 10/26/18 18:56 Urine Culture - Final Urine,Voided Escherichia coli 10/27/18 16:07 Blood Culture - Preliminary Blood No Growth after 24 hours Assessment and Plan (1) Closed left hip fracture Narrative/Plan: He will continue with routine postop orthopedic protocol including pain management, wound care, PT, DVT prophylaxis and medical management. He may transfer to an ECF from an orthopedic standpoint when ok with IM. Current Visit: Yes Status: Acute Priority: Medium Code(s): S72.002A - F RACTURE OF UNSP PART OF NECK OF LEFT FEMUR, INIT SNOMED Code(s): 818951501 (2) Fracture of hip Current Visit: Yes Status: Acute Priority: Medium Code(s): S72.009A - FRACTURE OF UNSP PART OF NECK OF UNSP FEMUR, INIT SNOMED Code(s): 257801918 (3) Weakness Current Visit: Yes Status: Acute Priority: Medium Code(s): R53.1 - WEAKNESS SNOMED Code(s): 69200418 Time with Patient: Less than 30
[2018-10-29 19:44] VITALS: RESP 18
--- NOTE | 2018-10-29 21:59 | PN ---
PROGRESS NOTE DATE OF SERVICE: 10/29/2018 This 73-year-old gentleman who was admitted with left hip fracture underwent left hip hemiarthroplasty. Patient is improving significantly. No chest pain. No palpitations. No fever. PT/OT evaluated the patient for possible ECF rehab. On exam, alert and oriented x2. Pulse 90, blood pressure 101/66, respirations 16, temperature 98.8, pulse ox 97% on room air. HEENT: Conjunctivae normal. NECK: No jugular venous distention. CARDIOVASCULAR SYSTEM: S1, S2 muffled. RESPIRATORY SYSTEM: Breath sounds diminished at the bases. No rhonchi. No crackles. ABDOMEN: Soft. LEGS: Status post surgery on the left side. NERVOUS SYSTEM: No focal deficit. LABS: WBC 6.5, hemoglobin 10.3. UA noted. ASSESSMENT: 1. Acute left hip fracture, status post left hip hemiarthroplasty. 2. Multiple falls and gait dysfunction history recently. 3. 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 4. Change in mental status, metabolic encephalopathy, multifactorial. 5. Urinary tract infection, present on admission. 6. History of left-sided stroke from cerebrovascular accident with right encephalomalacia. 7. On Brilinta for undetermined reasons. Stopped now. 8. History of nicotine dependence. 9. FULL CODE. RECOMMENDATIONS AND DISCUSSION: I recommend to continue current medications, continue with symptomatic treatment. Otherwise, PT/OT evaluation. The patient will require ECF rehab because of multiple complex medical issues, recurrent falls and other issues listed above. Will continue to monitor. Closely follow with Case Management and social workers, and once ECF placement is in place, the patient could be discharged. Further recommendations to follow. MMODL / IJN: [id number] /
[2018-10-29] MEDS: SENNOSIDES-DOCUSATE SODIUM 1 EACH TAB PO SCH (22:14)
[2018-10-29] MEDS: ATORVASTATIN 80 MG TAB PO SCH (22:15)
[2018-10-30] MEDS: ceFAZolin IN SWFI 2 GM/20 ML SYRINGE IVP SCH ×2 (01:12→09:45)
[2018-10-30 01:32] VITALS: BP 101/58; PULSE 96; TEMP 100.1
[2018-10-30] MEDS: ACETAMINOPHEN TAB 325 MG TAB PO PRN (06:30)
[2018-10-30] MEDS: PANTOPRAZOLE 40 MG TABLET PO SCH (09:45)
[2018-10-30] MEDS: buPROPion 100 MG TAB PO SCH (09:45)
[2018-10-30] MEDS: HEPARIN SODIUM,PORCINE 5,000 UNIT/ML 1 ML VIAL SQ SCH (09:45)
[2018-10-30] MEDS: MULTIVITAMINS, THERA 1 EACH TAB PO SCH (09:45)
[2018-10-30] MEDS: amLODIPine 5 MG TAB PO SCH (10:26)
[2018-10-30] MEDS: METOPROLOL TARTRATE 12.5 MG TAB PO SCH (10:27)
--- NOTE | 2018-10-30 10:36 | P.PN ---
Subjective Progress Note Date: 10/30/18 Principal diagnosis: S/P left hip hemiarthroplasty Patient is seen at bedside this morning. He is postop day #2 from left hip hemiarthroplasty for hip fracture. He has pain at the surgical site as expected but denies any new complaints. He denies new numbness, tingling or calf pain. Review of systems is negative for fever, chills, chest pain, shortness of breath or other Objective - Vital Signs Vital signs: Vital Signs Temp 100.1 F H 10/30/18 01:32 Pulse 96 10/30/18 01:32 Resp 18 10/30/18 01:32 BP 101/58 10/30/18 01:32 Pulse Ox 98 10/30/18 01:32 Intake & Output 10/29/18 10/30/18 10/30/18 18:59 06:59 18:59 Intake Total 120 Output Total 1000 2400 600 Balance -1000 -2400 -480 Intake: Oral 120 Output: Urine 1000 2400 600 Straight 500 Uretheral (Álvarez) 1200 Other: # Voids 0 - Exam Inspection reveals a benign surgical wound. There is no active bleeding or drainage. Neurovascular status is unchanged as he has residual deficit on left side from prior stroke. Calf is soft and nontender. 2+ dorsalis pedis pulse and less than 2 second cap refill is present. - Constitutional General appearance: Present: no acute distress - Labs CBC & Chem 7: 10/29/18 06:50 10/26/18 16:38 Labs: Abnormal Lab Results - Last 24 Hours (Table) 10/29/18 Range/Units 06:50 RBC 3.29 L (4.30-5.90) m/uL Hgb 10.3 L (13.0-17.5) gm/dL Hct 30.9 L (39.0-53.0) % Microbiology - Last 24 Hours (Table) 10/27/18 16:07 Blood Culture - Preliminary Blood No Growth after 48 hours Assessment and Plan (1) Closed left hip fracture Narrative/Plan: He will continue with routine postop orthopedic protocol including pain management, wound care, PT, DVT prophylaxis and medical management. He may transfer to an ECF from an orthopedic standpoint when ok with IM. Current Visit: Yes Status: Acute Priority: Medium Code(s): S72.002A - FRACTURE OF UNSP PART OF NECK OF LEFT FEMUR, INIT SNOMED Code(s): 853673571 (2) Fracture of hip Current Visit: Yes Status: Acute Priority: Medium Code(s): S72.009A - FRACTURE OF UNSP PART OF NECK OF UNSP FEMUR, INIT SNOMED Code(s): 462609132 (3) Weakness Current Visit: Yes Status: Acute Priority: Medium Code(s): R53.1 - WEAKNESS SNOMED Code(s): 28432515 Time with Patient: Less than 30
--- NOTE | 2018-10-30 10:53 | P.DS ---
Providers Date of admission: 10/26/18 18:01 Attending physician: Heri Herrera Consults: 10/26/18 18:01 Consult Physician Routine Consulting Provider: Fausto Petty Consult Reason/Comments: hipFx Do you want consulting provider notified?: Yes 10/26/18 22:45 Consult Physician Routine Consulting Provider: Taty Arce Consult Reason/Comments: shana Do you want consulting provider notified?: Yes Consult Physician Routine Consulting Provider: Taty Arce Consult Reason/Comments: clearence for surgery Do you want consulting provider notified?: Yes Primary care physician: [facility] Course: Diagnoses Acute left hip fracture status post left hip hemiarthroplasty Multiple falls and gait dysfunction history recently 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 Stopped now History of nicotine dependence Full code Discharge disposition This 73-year-old gentleman with a past medical history multiple medical problems was admitted with the hip fracture had surgery. Patient be discharged to ECF in a stable condition with a guarded prognosis. History of present illness This 73-year-old gentleman with a past medical history multiple medical problems was admitted to the left hip fracture orthopedist performed the surgery. Patient also had UTI and change in mental status. Patient was treated with antibiotics. Improved significantly. Patient is sensorium also improved significantly significantly. PTOT evaluate the patient. ECF rehab is being arranged at this time. On exam vitals are stable. Cardio S1 and S2 normal. Respiratory system few scattered rhonchi. Abdomen soft nontender. Nervous system no focal visit. Please suffer to the discharge reconciliation for discharge medications. Patient Condition at Discharge: Fair Plan - Discharge Summary Discharge Rx Participant: No New Discharge Prescriptions: No Action Shaklee Jazmín Alina 1 tab PO AC-BRKFST buPROPion [Wellbutrin] 100 mg PO DAILY Ticagrelor [Brilinta] 90 mg PO BID Cyclobenzaprine [Flexeril] 5 mg PO BID PRN PRN Reason: Muscle Spasm Acetaminophen Tab [Tylenol Tab] 325 - 650 mg PO Q6H PRN PRN Reason: Pain amLODIPine [Norvasc] 5 mg PO DAILY Atorvastatin [Lipitor] 80 mg PO HS Aspirin EC [Ecotrin Low Dose] 81 mg PO DAILY Discharge Medication List Acetaminophen Tab [Tylenol Tab] 325 - 650 mg PO Q6H PRN 10/26/18 [History] Aspirin EC [Ecotrin Low Dose] 81 mg PO DAILY 10/26/18 [History] Atorvastatin [Lipitor] 80 mg PO HS 10/26/18 [History] Cyclobenzaprine [Flexeril] 5 mg PO BID PRN 10/26/18 [History] Shaklhugo Malloya Alina 1 tab PO AC-BRKFST 10/26/18 [History] Ticagrelor [Brilinta] 90 mg PO BID 10/26/18 [History] amLODIPine [Norvasc] 5 mg PO DAILY 10/26/18 [History] buPROPion [Wellbutrin] 100 mg PO DAILY 10/26/18 [History] Follow up Appointment(s)/Referral(s): Felix Bucio MD [Primary Care Provider] - 1-2 days Fausto Petty MD [STAFF PHYSICIAN] - 11/06/18 9:30 am Activity/Diet/Wound Care/Special Instructions: WBAT Keep wound clean and dry May shower after three days if no bleeding F/U with Dr. Petty in office
[2018-10-30] MEDS: CYCLOBENZAPRINE 5 MG TAB PO PRN (14:50)
== END 2018-10-30 15:42 | DRG 469 ==
LOC: EC 15:27 → 4SSUR 18:01
PROVIDERS: ADMIT Hospitalist; ATTEND Hospitalist
PROC: 0SRS01A Replacement of Left Hip Joint, Femoral Surface with Metal Synthetic Substitute, Uncemented, Open Approach (ICD-10-PCS; principal; 2018-10-28 08:00)
DX: S72.012A Unspecified intracapsular fracture of left femur, initial encounter for closed fracture (principal); G93.41 Metabolic encephalopathy; I69.354 Hemiplegia and hemiparesis following cerebral infarction affecting left non-dominant side; N39.0 Urinary tract infection, site not specified; G93.89 Other specified disorders of brain; I10 Essential (primary) hypertension; E78.5 Hyperlipidemia, unspecified; R40.2142 Coma scale, eyes open, spontaneous, at arrival to emergency department; R40.2362 Coma scale, best motor response, obeys commands, at arrival to emergency department; R40.2252 Coma scale, best verbal response, oriented, at arrival to emergency department; R29.6 Repeated falls; R26.9 Unspecified abnormalities of gait and mobility; F17.200 Nicotine dependence, unspecified, uncomplicated; Z79.82 Long term (current) use of aspirin; Z79.02 Long term (current) use of antithrombotics/antiplatelets; Z79.899 Other long term (current) drug therapy; Z91.81 History of falling; W19.XXXA Unspecified fall, initial encounter; Y92.009 Unspecified place in unspecified non-institutional (private) residence as the place of occurrence of the external cause
CPT/HCPCS: 36415; 70450; 71046; 72100; 73501; 73502; 80053; 81001; 83735; 84100; 84484; 85025; 85610; 85730; 87040; 87077; 87086; 87186; 88305; 88311; 93005; 93306; 96361; 96374; 96376; 99285